=== PATIENT | male | born 1965 | race Caucasian/White ===

== ENCOUNTER 2021-06-01 22:38 | Emergency (ER) | payer SELFPAY ==
--- NOTE | 2021-06-01 23:26 | Emergency Department Report ---
ED General Adult HPI - General Stated complaint: MEDICAL CLEARANCE FOR [facility] PUI?: No Time Seen by Provider: 06/01/21 23:25 Source: patient Mode of arrival: Ambulatory Limitations: No Limitations - History of Present Illness Initial comments: 55 yo AA comes to ER via POV for medical clearance for [facility]. He states he has a bed/ has been accepted for voluntary alcohol treatment- but for the admit they sent him here for med clearance. Pt has a/c ETOH abuse. He is admitting himself for help with his etoh abuse. He has been through rehab once before. no HI no SI cooperative ambulatory and in nad on exam Last drink 2P today Drinks daily Has been in rehab once before Pt had no tremor He has a/c HTN- BP elevated but he did not take his meds today and is going inpt for etoh abuse No diaphoresis no cp no sob PMH HTN on norvasc at home- has not taken today Improves with: none Worsens with: none Associated Symptoms: denies other symptoms. denies: confusion, chest pain, cough, diaphoresis, fever/chills, headaches, loss of appetite, malaise, nausea/vomiting, rash, seizure, shortness of breath, syncope, weakness Treatments Prior to Arrival: none - Related Data Allergies Allergy/AdvReac Type Severity Reaction Status Date / Time NSAIDS (Non-Steroidal Allergy Unknown Verified 03/15/15 08:57 Anti-Inflamma ED Review of Systems ROS: Stated complaint: MEDICAL CLEARANCE FOR [facility] Other details as noted in HPI Comment: All other systems reviewed and negative Constitutional: no symptoms reported Respiratory: no symptoms reported Endocrine: no symptoms reported ED Past Medical Hx - Past Medical History Previous Medical History?: Yes Hx Hypertension: Yes Additional medical history: etoh abuse. hernia. diverticulitis - Surgical History Past Surgical History?: Yes Additional Surgical History: hernia repair - Family History Family history: no significant - Social History Smoking Status: Former Smoker Substance Use Type: Alcohol ED Physical Exam - General General appearance: alert, in no apparent distress - Head Head exam: Present: atraumatic, normocephalic - Eye Eye exam: Present: normal appearance - ENT ENT exam: Present: mucous membranes moist - Neck Neck exam: Present: normal inspection - Respiratory Respiratory exam: Present: normal lung sounds bilaterally. Absent: respiratory distress - Cardiovascular Cardiovascular Exam: Present: regular rate, normal rhythm. Absent: systolic murmur, diastolic murmur, rubs, gallop - GI/Abdominal GI/Abdominal exam: Present: soft, normal bowel sounds - Rectal Rectal exam: Present: deferred - Extremities Exam Extremities exam: Present: normal inspection - Back Exam Back exam: Present: normal inspection - Neurological Exam Neurological exam: Present: alert, oriented X3 - Psychiatric Psychiatric exam: Present: anxious - Skin Skin exam: Present: warm, dry, intact, normal color. Absent: rash ED Course Vital Signs 06/01/21 23:41 Temperature 98.4 F Pulse Rate 78 Respiratory 16 Rate Blood Pressure 173/117 [Right] O2 Sat by Pulse 98 Oximetry ED Medical Decision Making - Medical Decision Making HTN on admit- norvasc 10 mg ordered- home dose Pt has no symptoms and no complaints-- no cp. no sob. no headache. He is neuro intact Pt ambulatory and non ill toxic on exam. Cooperative. NAD His htn is acute on chronic, expected with his current clinical presentation, he has not taken his med today. He has NO symptoms. Is here for medical clearance for rehab. MEDICALLY CLEARED FOR REHAB Vital Signs 06/01/21 23:41 Temperature 98.4 F Pulse Rate 78 Respiratory 16 Rate Blood Pressure 173/117 [Right] O2 Sat by Pulse 98 Oximetry - Differential Diagnosis med clearance for [facility] Critical care attestation.: If time is entered above; I have spent that time in minutes in the direct care of this critically ill patient, excluding procedure time. ED Disposition Clinical Impression: Medical clearance for psychiatric admission, Alcohol abuse, History of hypertension Disposition: HOME / SELF CARE / HOMELESS Is pt being admited?: No Does the pt Need Aspirin: No Condition: Stable Additional Instructions: MEDICALLY CLEARED FOR ALCOHOL TREATMENT PT HAS CHRONIC HIGH BLOOD PRESSURE HE SHOULD STAY ON HIS HOME REGIMEN Referrals: MADDIE MUJCIA MD [Staff Physician] - 3-5 Days Time of Disposition: 23:26
[2021-06-01] MEDS ORDERED: amLODIPine 5 MG TAB PO ONE (23:27)
[2021-06-01 23:43] VITALS: BP 173/117
== END 2021-06-02 00:15 | disposition home or self-care (01) ==
LOC: ED 22:38
DX: Z04.6 Encounter for general psychiatric examination, requested by authority (principal); I10 Essential (primary) hypertension; F10.10 Alcohol abuse, uncomplicated; Z98.890 Other specified postprocedural states; Z87.891 Personal history of nicotine dependence; Z88.8 Allergy status to other drugs, medicaments and biological substances
CPT/HCPCS: 99281